=== PATIENT | female | born 1960 | race Caucasian/White ===

== ENCOUNTER 2017-02-19 10:48 | Emergency (ER) | payer OTHER ==
[2017-02-19 11:04] VITALS: TEMP 98.3; BMI 34.9
--- NOTE | 2017-02-19 11:55 | PDOC ---
History of Present Illness <Yogesh Harrell - Last Filed: 02/19/17 11:55> - General History Source: Patient Exam Limitations: No Limitations - History of Present Illness Initial Comments: 02/19/17 11:59 The patient is a 56 year old female with a significant past medical history of recent partial thyroidectomy who presents to to the ED with neck swelling for 2 days. The patient had a recent partial thyroidectomy performed on Monday at [facility] . She reports a gradual onset of swelling at her neck, at the surgical site. She denies neck pain or erythema. Denies fever or chills. Denies chest pain. Denies nausea, vomiting, or diarrhea. Denies focal numbness, weakness, or tingling. Denies any other symptoms. General Surgeon: Jenniffer Zheng <Faye Neves - Last Filed: 02/19/17 12:01> - General Chief Complaint: Edema Stated Complaint: SWOLLEN NECK, POST OP Time Seen by Provider: 02/19/17 11:11 Past History - Past Medical History Asthma: Yes COPD: No DVT: No Dementia: No - Immunization History Immunization Up to Date: Yes - Suicide/Smoking/Psychosocial Hx Smoking History: Never smoked Information on smoking cessation initiated: No Hx Alcohol Use: No Drug/Substance Use Hx: No Substance Use Type: None <Yogesh Harrell - Last Filed: 02/19/17 11:55> <Faye Neves - Last Filed: 02/19/17 12:01> - Past Medical History Allergies/Adverse Reactions: Allergies Allergy/AdvReac Type Severity Reaction Status Date / Time No Known Allergies Allergy Verified 02/19/17 10:59 Review of Systems - Review of Systems Able to Perform ROS?: Yes Comments:: 02/19/17 12:00 ROS: A complete review of 10 out of 10 review of systems is taken and is negative apart from what is previously mentioned below and in the HPI. <Faye Neves - Last Filed: 02/19/17 12:01> *Physical Exam - Vital Signs Last Vital Signs Temp Pulse Resp BP Pulse Ox 98.3 F 79 16 126/80 98 02/19/17 11:01 02/19/17 11:01 02/19/17 11:01 02/19/17 11:01 02/19/17 11:14 <Yogesh Harrell - Last Filed: 02/19/17 11:55> - Vital Signs Last Vital Signs Temp Pulse Resp BP Pulse Ox 98.3 F 79 16 126/80 98 02/19/17 11:01 02/19/17 11:01 02/19/17 11:01 02/19/17 11:01 02/19/17 11:14 - Physical Exam Comments: 02/19/17 12:00 Vitals: Triage Vital signs reviewed General Appearance: no acute distress, well nourished well developed Head: Atraumatic Neck: + swelling above the thyroid, midline, horizontal at surgical site. Extremities: Full range of motion to all extremities, no cyanosis, clubbing, or edema Skin: Warm and dry, no rashes or lesions, no rash, no petechiae Neuro: AOX3; Cranial Nerves 2-12 grossly intact, Strength intact to all extremities, Sensation intact to all extremities Psych: Normal mood, normal affect <Faye Neves - Last Filed: 02/19/17 12:01> Medical Decision Making - Medical Decision Making 02/19/17 12:00 The patient is a 56 year old female with a significant past medical history of recent partial thyroidectomy who presents to to the ED with neck swelling for 2 days. Patient will be seen in the ED by Dr. Lubin. Arthur Zheng was paged at 11:24 and 11:45. Patient was evaluated by Dr. Lubin in the ED and will follow up with him on Monday in his office. <Faye Neves - Last Filed: 02/19/17 12:01> *DC/Admit/Observation/Transfer <Yogesh Harrell - Last Filed: 02/19/17 11:55> - Discharge Dispostion Admit: No - Attestations Scribe Attestion: 02/19/17 12:01 Documentation prepared by Faye Neves, acting as medical coding instructor for Yogesh Harrell MD <Faye Neves - Last Filed: 02/19/17 12:01> Diagnosis at time of Disposition: Post-operative complication - Discharge Dispostion Disposition: HOME - Referrals Referrals: Anders [facility] [Primary Care Provider] - Bridger Lubin MD [Staff Physician] - - Patient Instructions Additional Instructions: Follow up with Dr. Lubin on Monday. Return to the ED for fever, pain or any other concerns. - Post Discharge Activity
--- NOTE | 2017-02-19 12:04 | CONSULT ---
Consult Consult Specialty:: Surgery Reason for Consultation:: Postop swelling of neck. - History of Present Illness History of Present Illness: Patient is s/p left thyroid lobectomy at [facility] on 02/13/2017. Patient was concerned that her neck is swollen and wanted to be seen right away. As today is Monday she was asked to come eo Er to be evaluated. Patient is een in the ER. She is comfortable, not in distress. - History Source History Provided By: Patient Limitations to Obtaining History: No Limitations - Alcohol/Substance Use Hx Alcohol Use: No - Smoking History Smoking history: Never smoked Home Medications - Allergies Allergies/Adverse Reactions: Allergies Allergy/AdvReac Type Severity Reaction Status Date / Time No Known Allergies Allergy Verified 02/19/17 10:59 Physical Exam Vital Signs: Vital Signs Temperature 98.3 F 02/19/17 11:01 Pulse Rate 79 02/19/17 11:01 Respiratory Rate 16 02/19/17 11:01 Blood Pressure 126/80 02/19/17 11:01 O2 Sat by Pulse Oximetry (%) 98 02/19/17 11:14 Neck: Yes: Other (Minimal . postoperative swelling at the incisional site. There is no fluctuation in the neck, and has a normal voice. She is not in any respiratory distress.) Assessment/Plan S/P Thyroid lobectomy , post op day no. 5. Normal postop neck and wound swelling. No sign of hematoma, or seroma, no fluctuation. No infection . Patient is reassured , and will be followed in the office on .
[2017-02-19 12:15] VITALS: BP 135/80; PULSE 82
== END 2017-02-19 12:15 | disposition home or self-care (01) ==
LOC: JER 10:48
DX: E89.89 Other postprocedural endocrine and metabolic complications and disorders (principal)
CPT/HCPCS: 99283-25